=== PATIENT | male | born 1955 | race Caucasian/White ===

== ENCOUNTER 2017-09-23 12:32 | Outpatient (CLI) | payer BC, OTHER ==
--- NOTE | 2017-09-23 14:57 | RAD ---
PA AND LATERAL CHEST: Date: 09/23/17 HISTORY: Dyspnea. COMPARISON: None available. FINDINGS: A triple lead left subclavian AICD device is noted in place. Cardiac silhouette and pulmonary vascula ture are within normal limits. The lungs are clear. There are mild focal areas of eventration of each hemidiaphragm. Vascular calcifications seen in the thoracic aorta. Osseous structures appear intact. IMPRESSION: No acute cardiopulmonary process. POS: JULIO
== END 2017-09-23 12:33 | disposition home or self-care (01) ==
LOC: RAD 12:32
PROVIDERS: ATTEND Internal Medicine Critical Care Medicine
DX: R06.00 Dyspnea, unspecified (principal)
CPT/HCPCS: 71046

== ENCOUNTER 2023-03-04 19:46 | Observation (INO) | payer MEDICARE, OTHER ==
[2023-03-04 21:10] LABS: #Basophils 0.1 thou/uL (0.0-0.2); #Monocytes 0.8 thou/uL (0.11-0.59); %Basophils 0.7 % (0.0-1.0); %Lymphocytes 28.5 % (21.0-51.0); %Monocytes 8.5 % (0.0-10.0); %Neutrophils 62.1 % (42.0-75.0); Hematocrit 39.7 % (42.0-52.0); Hemoglobin 14.6 g/dL (14.0-18.0); Mean Corpuscular HGB CONC 36.8 g/dL (32.0-36.0); Mean Corpuscular Hemoglobin 33.6 pg (27.0-31.0); Mean Corpuscular Volume 91.3 fl (78.0-98.0); Mean Platelet Volume 9.8 fL (7.4-10.4); Platelet Count 201 10x3/uL (130-400); RBC Distribution Width 12.6 % (11.5-14.5); Red Blood Cell (RBC) Count 4.35 mill/uL (4.70-6.10); White Blood Cell (WBC) Count 9.6 10x3/uL (4.8-10.8)
[2023-03-04 21:20] LABS: ALT (SGPT) 14 U/L (8-55); AST (SGOT) 15 U/L (5-34); Albumin 4.1 g/dL (3.4-4.8); Alkaline Phosphatase 68 U/L (40-110); Anion Gap 14 mmol/L (10-20); BUN (Urea Nitrogen) 28 mg/dL (8.4-25.7); Bilirubin, Total 0.6 mg/dL (0.2-1.2); Calc. Creatinine Clearance 0 mL/min (70-130); Calcium 9.3 mg/dL (7.8-10.44); Carbon Dioxide 28 mmol/L (23-31); Chloride 93 mmol/L (98-107); Estimated GFR 90; Globulin 3.6 g/dL (2.4-3.5); Glucose 111 mg/dL (80-115); Magnesium 2.1 mg/dL (1.6-2.6); Protein, Total 7.7 g/dL (5.8-8.1); Sodium 132 mmol/L (136-145)
[2023-03-04 21:24] LABS: Potassium 2.6 mmol/L (3.5-5.1)
[2023-03-04 21:36] LABS: Troponin I 0.014 ng/mL (< 0.028)
[2023-03-04] MEDS ORDERED: Potassium Chloride 20 MEQ TAB ONE ×2 (21:44→21:45)
[2023-03-05 02:46] LABS: Troponin I 0.027 ng/mL (< 0.028)
[2023-03-05] MEDS ORDERED: Ondansetron PF 4 MG/2 ML Vial IVP PRN (03:49)
[2023-03-05] MEDS ORDERED: Acetaminophen 325 MG TAB PO PRN (03:49)
[2023-03-05] MEDS ORDERED: Acetaminophen 650 MG Suppository PR PRN (03:49)
[2023-03-05] MEDS ORDERED: Ondansetron ODT 4 MG TAB PO PRN (03:49)
[2023-03-05] MEDS ORDERED: Electrolyte Replacement Protocol 1 EACH FS SCH (04:00)
[2023-03-05 04:12] VITALS: BMI 22.0
[2023-03-05] MEDS: NS 0.9% w/ 40 MEQ KCL 1,000 ML IV SCH ×2 (04:31→10:05)
[2023-03-05 04:51] LABS: #Basophils 0.1 thou/uL (0.0-0.2); #Monocytes 0.7 thou/uL (0.11-0.59); #Neutrophils 4.7 thou/uL (1.40-6.50); %Basophils 0.7 % (0.0-1.0); %Lymphocytes 33.8 % (21.0-51.0); %Monocytes 8.2 % (0.0-10.0); %Neutrophils 57.1 % (42.0-75.0); Hematocrit 39.4 % (42.0-52.0); Hemoglobin 13.6 g/dL (14.0-18.0); Mean Corpuscular HGB CONC 34.5 g/dL (32.0-36.0); Mean Corpuscular Hemoglobin 33.4 pg (27.0-31.0); Mean Platelet Volume 9.5 fL (7.4-10.4); Platelet Count 165 10x3/uL (130-400); RBC Distribution Width 12.9 % (11.5-14.5); Red Blood Cell (RBC) Count 4.07 mill/uL (4.70-6.10); White Blood Cell (WBC) Count 8.3 10x3/uL (4.8-10.8)
[2023-03-05 05:02] LABS: Mean Corpuscular Volume 96.8 fl (78.0-98.0)
[2023-03-05 05:14] LABS: Anion Gap 14 mmol/L (10-20); BUN (Urea Nitrogen) 21 mg/dL (8.4-25.7); Calc. Creatinine Clearance 104 mL/min (70-130); Calcium 8.5 mg/dL (7.8-10.44); Carbon Dioxide 25 mmol/L (23-31); Chloride 100 mmol/L (98-107); Estimated GFR 103; Glucose 81 mg/dL (80-115); Magnesium 1.9 mg/dL (1.6-2.6); Potassium 2.8 mmol/L (3.5-5.1); Sodium 136 mmol/L (136-145)
[2023-03-05 05:23] LABS: Troponin I 0.013 ng/mL (< 0.028)
[2023-03-05] MEDS: Potassium Chloride 20 MEQ TAB PO SCH ×2 (06:27→10:10)
[2023-03-05] MEDS ORDERED: Magnesium 2 GM/50 ML(in water) 2 GM in Premix Bag 1 BAG IVPB SCH (08:00)
[2023-03-05 13:43] LABS: Anion Gap 8 mmol/L (10-20); BUN (Urea Nitrogen) 15 mg/dL (8.4-25.7); Calc. Creatinine Clearance 102 mL/min (70-130); Calcium 8.4 mg/dL (7.8-10.44); Carbon Dioxide 27 mmol/L (23-31); Chloride 103 mmol/L (98-107); Estimated GFR 102; Glucose 114 mg/dL (80-115); Magnesium 2.3 mg/dL (1.6-2.6); Potassium 3.9 mmol/L (3.5-5.1); Sodium 134 mmol/L (136-145)
[2023-03-05 15:54] VITALS: BP 112/73; TEMP 98.6
== END 2023-03-05 16:40 | disposition home or self-care (01) ==
LOC: ERS 19:46 → 2SW 03-05 01:07
PROVIDERS: ADMIT Student in an Organized Health Care Education/Training Program; ATTEND Internal Medicine
DX: I47.1 Supraventricular tachycardia (principal); I42.8 Other cardiomyopathies; E87.6 Hypokalemia; F17.210 Nicotine dependence, cigarettes, uncomplicated; Z95.810 Presence of automatic (implantable) cardiac defibrillator; Z86.711 Personal history of pulmonary embolism; Z79.01 Long term (current) use of anticoagulants; Z79.899 Other long term (current) drug therapy; Z79.82 Long term (current) use of aspirin
CPT/HCPCS: 36415; 71045; 80048; 80053; 83735; 84484; 85025; 93005; 93306; 96365; 96366; J3475; J3480